=== PATIENT | female | born 1985 ===

== ENCOUNTER 2023-02-28 11:06 | Outpatient (CLI) | payer BC | END 2023-02-28 11:15 | disposition home or self-care (01) | LOC: MAMO-SONO 11:06 | PROVIDERS: ATTEND Obstetrics & Gynecology | DX: N60.11 Diffuse cystic mastopathy of right breast (principal); Z12.31 Encounter for screening mammogram for malignant neoplasm of breast; E07.89 Other specified disorders of thyroid ==

== ENCOUNTER 2023-02-28 12:25 | Outpatient (CLI) | payer BC ==
[2023-02-28 13:31] LABS: HEMATOCRIT 40.5 % (36.0-45.00); HEMOGLOBIN 13.5 g/dL (12.0-15.00); MEAN CELL VOLUME 76.3 fL (80.00-100.00); MEAN CORPUSCULAR HEMOGLOBIN 25.4 pg (27.00-32.0); MEAN CORPUSCULAR HGB CONC 33.3 g/dl (32.0-36.0); PLATELET COUNT 339 K/uL (150-450); RED CELL DISTRIBUTION WIDTH 14.8 % (11.5-14.5)
[2023-02-28 14:10] LABS: CHOL HDL RATIO 2.7 (0-5.0)
[2023-02-28 14:17] LABS: T4 FREE 0.92 NG/ML (0.76-1.46); TSH 2.73 uIU/mL (0.358-3.74)
== END 2023-02-28 12:26 | disposition home or self-care (01) ==
LOC: LAB 12:25
PROVIDERS: ATTEND Obstetrics & Gynecology
DX: N91.1 Secondary amenorrhea (principal)

== ENCOUNTER 2023-12-05 08:15 | Inpatient (IN) | payer OTHER ==
[~2023-12-05] VITALS: Ht 172.7 cm; Wt 3.6 kg
[2023-12-05] MEDS ORDERED: PRENATALES (10:08)
[2023-12-05] MEDS ORDERED: UNISOM25 MG (10:09)
[2023-12-05] MEDS ORDERED: [UNRECOGNIZED DRUG - OTHER] (10:09)
[2023-12-05 11:04] LABS: INR 0.95; PARTIAL THROMBOPLASTIN TIME 26.1 SECONDS (22.0-34.0)
[2023-12-05 11:09] LABS: ALBUMIN 2.8 gm/dL (3.4-5.0); BILIRUBIN TOTAL 0.46 mg/dL (0.3-1.2); CREATININE SERUM 0.42 mg/dL (0.55-1.02); GFR 170.71; GLOBULINA 3.5 G/DL (2.4-3.5); POTASSIUM 4.21 mEq/L (3.5-5.1); TOTAL PROTEIN 6.3 gm/dL (6.4-8.2)
[2023-12-17] MEDS ORDERED: RINGERS SOLUTION,LACTATED 1,000 ML IV SCH (07:30)
[2023-12-17] MEDS ORDERED: CITRIC ACID/SODIUM CITRATE 30 ML BLIST.PACK PO SCH (07:30)
[2023-12-17] MEDS ORDERED: CEFAZOLIN SODIUM 1,000 MG VIAL IV SCH (07:30)
[2023-12-17] MEDS ORDERED: CEFAZOLIN SODIUM 1,000 MG VIAL ONE (07:39)
[2023-12-17] MEDS ORDERED: CITRIC ACID/SODIUM CITRATE 30 ML BLIST.PACK PO ONE (07:40)
[2023-12-17] MEDS ORDERED: OXYTOCIN 10 UNITS/ML VIAL ONE (07:47)
[2023-12-17] MEDS ORDERED: ERYTHROMYCIN BASE 1 GM TUBE OP ONE ×2 (07:47→11:00)
[2023-12-17] MEDS ORDERED: CHLORHEXIDINE GLUCONATE 120 ML BOTTLE TOP ONE ×2 (07:47→11:00)
[2023-12-17] MEDS ORDERED: IBUprofen 400 MG TABLET PO PRN (10:00)
[2023-12-17] MEDS ORDERED: OXYTOCIN 1,000 ML IV SCH (10:00)
[2023-12-17] MEDS ORDERED: MEPERIDINE HCL/PF 50 MG/ML VIAL IM PRN (10:00)
[2023-12-17] MEDS ORDERED: FAMOTIDINE/PF 20 MG/2 ML VIAL ONE (10:07)
[2023-12-17] MEDS ORDERED: MORPHINE SULFATE 4 MG/ML VIAL IV ONE (10:40)
[2023-12-17] MEDS ORDERED: FAMOTIDINE/PF 20 MG/2 ML VIAL IV ONE (11:00)
[2023-12-17] MEDS ORDERED: OXYTOCIN 10 UNITS/ML VIAL IV ONE (11:00)
[2023-12-18] MEDS ORDERED: OxyCODONE HCL/APAP UD (PERCOCET) PO PRN (08:00)
[2023-12-18 10:08] LABS: HEMATOCRIT 33.5 % (36.0-45.00); HEMOGLOBIN 11.4 g/dL (12.0-15.00); MEAN CELL VOLUME 76.1 fL (80.00-100.00); MEAN CORPUSCULAR HEMOGLOBIN 25.8 pg (27.00-32.0); MEAN CORPUSCULAR HGB CONC 33.9 g/dl (32.0-36.0); PLATELET COUNT 215 K/uL (150-450); RED CELL DISTRIBUTION WIDTH 16.3 % (11.5-14.5)
== END 2023-12-20 13:12 | disposition home or self-care (01) | DRG 788 ==
LOC: OB/GYN 12-17 07:08 → LDR 12-17 07:08 → OB/GYN 12-17 08:15
PROVIDERS: ADMIT Obstetrics & Gynecology; ATTEND Obstetrics & Gynecology
PROC: 4A1HXCZ Monitoring of Products of Conception, Cardiac Rate, External Approach (ICD-10-PCS; 2023-12-17)
PROC: 10D00Z1 Extraction of Products of Conception, Low, Open Approach (ICD-10-PCS; principal; 2023-12-17 10:45)
PROC: BW40ZZZ Ultrasonography of Abdomen (ICD-10-PCS; 2023-12-19)
DX: O34.211 Maternal care for low transverse scar from previous cesarean delivery (principal); Z3A.38 38 weeks gestation of pregnancy; Z37.0 Single live birth; Z20.822 Contact with and (suspected) exposure to COVID-19